=== PATIENT | male | born 1990 | race Caucasian/White ===

== ENCOUNTER → 2017-07-15 | Outpatient (CLI) | payer MEDICAID ==
[~2017-07-15] VITALS: Ht 200.7 cm; Wt 103.9 kg
== END | disposition home or self-care (01) ==
LOC: Rad HDHVI 09:00
PROVIDERS: ATTEND Internal Medicine Cardiovascular Disease
DX: I10 Essential (primary) hypertension (principal); R55 Syncope and collapse; R07.9 Chest pain, unspecified; R42 Dizziness and giddiness
CPT/HCPCS: 93017

== ENCOUNTER → 2017-07-18 | Outpatient (CLI) | payer MEDICAID | END | disposition home or self-care (01) | LOC: Rad HDHVI 08:15 | PROVIDERS: ATTEND Internal Medicine Cardiovascular Disease | DX: R07.9 Chest pain, unspecified (principal); R42 Dizziness and giddiness | CPT/HCPCS: 93306 ==